=== PATIENT | male | born 1975 | race Caucasian/White ===

== ENCOUNTER 2018-01-20 06:34 | Emergency (ER) | payer MEDICAID ==
[~2018-01-20] VITALS: Ht 170.2 cm; Wt 93.0 kg
[2018-01-20 06:40] VITALS: Ht 170.2 cm; Wt 93.0 kg
[2018-01-20 07:22] VITALS: BP 129/84
== END 2018-01-20 07:22 | disposition home or self-care (01) ==
LOC: ED 06:34
DX: K13.0 Diseases of lips (principal); J45.909 Unspecified asthma, uncomplicated; I10 Essential (primary) hypertension; E78.00 Pure hypercholesterolemia, unspecified; Z90.89 Acquired absence of other organs